=== PATIENT | male | born 1995 | race Caucasian/White ===

== ENCOUNTER 2022-04-21 11:12 | Inpatient (IN) ==
--- NOTE | 2022-03-27 15:00 | PAT Medication Instructions ---
Medication Instructions Date of Service March 27, 2022 Home Medications buspirone 10 mg tablet 10 mg PO QAM citalopram 10 mg tablet 10 mg PO QAM losartan 50 mg tablet 50 mg PO QAM metoprolol tartrate 25 mg tablet 25 mg PO QAM DO NOT take the morning of surgery losartan 50 mg tablet 50 mg PO QAM Take morning of surgery With a small sip of water, OTHERWISE NOTHING TO EAT OR DRINK AFTER MIDNIGHT: buspirone 10 mg tablet 10 mg PO QAM citalopram 10 mg tablet 10 mg PO QAM metoprolol tartrate 25 mg tablet 25 mg PO QAM Other Notes If you have any questions please call us at [phone] or [phone] or [phone] or [phone]
--- NOTE | 2022-04-07 11:17 | Anesthesiology Consultation ---
Date of Service April 07, 2022 Assessment & Plan (1) Encounter for pre-operative examination: - Cardiology office visit (01/28/21): "Family history of sudden cardiac at a young age [hypertrophic cardiomyopathy].. Antecedent vasovagal presyncope and palpitations currently resolved. Patient has minor premature atrial contractions and premature ventricular contractions and has a normal EKG.. Mitral valve prolapse syndrome. Echo with Doppler on January 21, 2021 reveals mild mitral valve prolapse with mild 1+ mitral valve regurgitation.. Preserved left ventricular ejection fraction 60% suggesting good prognosis.. Class II dyspnea that is insignificant with no heart failure.. Normal symptom limited stress test in the past.. Rare episodic nonexertional nonsustained palpitations." Diet recommendations provided. Echo January 2022 recommended." 01/23/2022 with Mild 1+ Myxomatous Degenerative Mitral Valve RegurgitationNo Significant Change Compared to 11/21/2020 per Report. 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 Pt reports no recent issues with palpitations more recently at PAT visit 04/07/22*) - COVID screening: Per assessment on 04/07: No known COVID-19 positive contacts or current COVID-19 related symptoms. Travel screen negative. Patient vaccinated. At surgeon discretion if preop Covid testing being done. Chart Review Chart Review: Acceptable Risk for Surgery (pending evaluation AM DOS) and Patient seen in Pre Admission Testing Teaching & Discussion Pre-Anesthesia Teaching/Discussion Notes: Instructed NPO after midnight before surgery,except medications with 15 cc of water. Medication instructions provided according to the PAT guidelines. History Surgery Operation Date: 04/21/22 07:45 Proposed Procedures p L5-S1 Decompression and Fusion Spinal Cord Monitoring - Leo Gillis, Height/Weight Height: 6 ft 1 in Weight: 93.4 kg Allergies Allergy/AdvReac Type Severity Reaction Status Date / Time shellfish derived Allergy Intermediate Hives Verified 03/22/22 15:27 Sulfa (Sulfonamide Allergy Unknown Unknown Verified 03/22/22 15:27 Antibiotics) fentanyl AdvReac Unknown N/V Verified 04/07/22 12:23 hydromorphone [From Dilaudid] AdvReac Unknown N/V Verified 04/07/22 12:23 Medications Home Medications Medication Instructions Recorded Confirmed Last Taken buspirone 10 mg tablet 10 mg PO QA 03/22/22 03/22/22 Unknown citalopram 10 mg tablet 10 mg PO QAM 03/22/22 03/22/22 Unknown losartan 50 mg tablet 50 mg PO QAM 03/22/22 03/22/22 Unknown metoprolol tartrate 25 mg tablet 25 mg PO QAM 03/22/22 03/22/22 Unknown Past Medical History Medical History Anxiety Depression Hypertension Mitral valve prolapse Mild 1+ myxomatous degenerative mitral regurgitation per 01/2022 echo Mitral valve regurgitation Palpitations Reason for metoprolol Follows with Dr. Najera ([facility]) Vasovagal near-syncope Hx per cardio records Exercise / Class Metabolic Activity II 4-5 Yardwork/Stairs/Walk up hill (one FS (no CP, no SOB)) Past Family History Family History Father Cardiomegaly Grandfather (Paternal) Diabetes Past Surgical History Surgical History History of cholecystectomy History of colonoscopy History of tonsillectomy [place] teeth extracted Past Anesthesia History No Hx of Anesthesia Complications and No Family Hx of Anesthesia Complications History of PONV No Hx of PONV and Hx of Motion Sickness Social History Smoking Status: Former smoker Do You Dip or Chew Tobacco: No Smoking End Date: Quit 8 years ago (hx light tobacco use) Hx Alcohol Use: Yes Alcohol type: beer, wine and hard liquor alcohol intake frequency: a few times a week Hx Substance Use: No substance use type: does not use Review of Systems Hx of palpitations, controlled on beta conner. Patient denies chest pain, shortness of breath, dyspnea on exertion, fever, chills, cough, wheezing. Physical Exam Vital Signs VITALS BP 114/74 P 73 TEMP 98.2 SP02 99%RA RESP 16 PHYSICAL Full cervical extension range of motion. Full TMJ range of motion. TMD 3 finger breaths Mallampati Score 1 Dentition: intact Lungs: clear throughout to auscultation Cardiac: regular rate and rhythm, no murmurs noted Spine: normal Extremities: no edema Lab Results Anesthesia Preop Results Results Anesthesia Widget: WBC 5.87 K/ul (4.8-10.8) 04/07/22 Hgb 15.3 g/dl (14.0-18.0) 04/07/22 Hct 42.8 % (40.1-51.0) 04/07/22 Plt 250 K/uL (130-400) 04/07/22 Na 140 mmol/L (136-145) 04/07/22 K 3.9 mmol/L (3.5-5.1) 04/07/22 Cl 104 mmol/L (98-107) 04/07/22 CO2 29 mmol/L (21-32) 04/07/22 BUN 12 mg/dl (6-23) 04/07/22 Creat 0.88 mg/dl (0.6-1.4) 04/07/22 Glucose Level 75 mg/dl (70-99(Fasting)) 04/07/22 PT 10.8 Seconds (9.0-12.0) 04/07/22 PTT 26.8 Seconds (21.0-31.0) 04/07/22 INR 1.0 (0.9-1.1) 04/07/22 Urine Color Yellow 04/07/22 Urine Appearance Clear (Clear) 04/07/22 Urine pH 7.5 (4.5-7.5) 04/07/22 Urine Specific [place] 1.004 (1.000-1.030) 04/07/22 Urine Protein Negative (Negative) 04/07/22 Urine Glucose (UA) Negative (Negative) 04/07/22 Urine Ketones Negative (Negative) 04/07/22 Urine Blood Negative (Negative) 04/07/22 Urine Nitrite Negative (Negative) 04/07/22 Urine Bilirubin Negative (Negative) 04/07/22 Urine Urobilinogen Negative (Negative) 04/07/22 Urine Leukocyte Esterase Negative (Negative) 04/07/22 Blood Type A Positive 04/07/22 Antibody Screen NEGATIVE 04/07/22 Testing Electrocardiogram Date: 04/07/22 Findings: + NSR @ (62) Chest X-Ray Date: 04/07/22 FINDINGS: PA and lateral chest radiographs are obtained. No prior studies are available for comparison at the time of dictation. The cardiomediastinal silhouette is unremarkable. The lungs and pleural spaces are clear. There is no pneumothorax. The bony thorax appears intact. Cholecystectomy clips are noted in the right upper quadrant. IMPRESSION: No active disease in the chest. Echocardiogram Date: 01/23/22 LVEF 59%. Mild 1+ myxomatous degenerative mitral valvular regurgitation. No mitral valve stenosis. Trace mild physiologic TR/MR. Aortic valve is competent. Well preserved biatrial systolic contractile function. No diagnostic evidence of significant chamber enlargement. No significant change compared to 11/21/2020 per report. Stress Test Date: 02/18/13 Type: exercise Maximal treadmill stress test electrocardiographically negative for ischemia. Rare PACs and PVCs that abated at peak exercise. Good exercise tolerance limited by fatigue and dyspnea." No contraindication for the patient to participate in sports and exercise." Other Testing 24 hour Holter monitor (01/06/22) Predominant rhythm is sinus with normal conduction intervals. Average heart rate 84 bpm. Occasional asymptomatic PACs. No significant pauses, bradycardia or sustained arrhythmia. No atrial fibrillation. Minimum heart rate 55 bpm. Maximum heart rate 156 bpm. COVID-19 Risk Screen Screening Information COVID-19 Screen Date: 04/07/22 Exposure 21 Days Family/Household +COVID Last 21 Days: No Exposure 10 Days Any COVID Exposure Last 10 Days: No Symptoms Last 10 Days Experienced COVID Sx Last 10 Days: No + COVID 0-90 Days COVID + in Last 0-90 Days: No
[~2022-04-21 11:12] MED LIST: ACETAMINOPHEN 500 MG TAB PO SCH; CeleBREX 200 MG CAP PO SCH; GABAPENTIN 900 MG DOSE PO SCH; LR 15ML/HR IV SCH; ceFAZolin 2000MG 2,000 MG/15 ML SYR IV SCH
[2022-04-21] MEDS ORDERED: PHENYLEPHRINE 100MCG/ML 5ML SYR IV PRN (11:32)
[2022-04-21] MEDS ORDERED: fentaNYL citrate 100 MCG/2 ML VIAL IV PRN (11:32)
[2022-04-21] MEDS ORDERED: LABETALOL HCL IV 5 MG/ML 20ML IV PRN (11:32)
[2022-04-21] MEDS ORDERED: ePHEDrine sulfate 50 MG/ML AMP IV PRN (11:32)
[2022-04-21] MEDS ORDERED: SCOPOLAMINE 1 MG TDSY TD ONE (11:32)
[2022-04-21] MEDS ORDERED: ATROPINE SULFATE 0.1 MG/ML 10ML SYR IV PRN (11:32)
[2022-04-21] MEDS ORDERED: ONDANSETRON INJ 2 MG/ML 2 ML VIAL IV PRN ×2 (11:32→17:11)
--- NOTE | 2022-04-21 13:29 | History & Physical Bridge Note ---
Date of Service April 21, 2022 History & Physical Bridge Note I have examined the patient, reviewed the History & Physical and in the interval since the performance of the History & Physical I have noted the following changes of clinical significance: no changes noted
--- NOTE | 2022-04-21 13:30 | History & Physical Report ---
Date of Service April 21, 2022 Assessment & Plan (1) Neurogenic claudication due to lumbar spinal stenosis: Plan: L5-S1 decompression and fusion History of Present Illness Chief Complaint: Back and leg pain Primary Care Provider: Aleksandr Soto MD This is a 18-year-old male who presents with chronic persistent back and leg pain after failing course of nonoperative care is here for surgical invention. Allergies Allergy/AdvReac Type Severity Reaction Status Date / Time shellfish derived Allergy Intermediate Hives Verified 04/21/22 11:45 Sulfa (Sulfonamide Allergy Unknown Unknown Verified 04/21/22 11:45 Antibiotics) fentanyl AdvReac Unknown N/V Verified 04/21/22 11:45 hydromorphone [From Dilaudid] AdvReac Unknown N/V Verified 04/21/22 11:45 Home Medications Medication Instructions Recorded Confirmed Type buspirone 10 mg tablet 10 mg PO QAM 03/22/22 04/21/22 History citalopram 10 mg tablet 10 mg PO QAM 03/22/22 04/21/22 History losartan 50 mg tablet 50 mg PO QAM 03/22/22 04/21/22 History metoprolol tartrate 25 mg tablet 25 mg PO QAM 03/22/22 04/21/22 History Past Med/Surg History Medical History Anxiety Depression Hypertension Mitral valve prolapse Mild 1+ myxomatous degenerative mitral regurgitation per 01/2022 echo Mitral valve regurgitation Palpitations Reason for metoprolol Follows with Dr. Najera ([facility]) Vasovagal near-syncope Hx per cardio records Surgical History History of cholecystectomy History of colonoscopy History of tonsillectomy [place] teeth extracted Family History Father Cardiomegaly Grandfather (Paternal) Diabetes Social History Smoking Status: Former smoker Smoking End Date: Quit 8 years ago (hx light tobacco use); Second Hand Exposure: No; Do You Dip or Chew Tobacco: No; Tobacco Cessation Education Requested by Patient: No Hx Alcohol Use: Yes Alcohol type: beer, wine and hard liquor Hx Substance Use: No Preferred Language: Gabonese Communication Ability: Effective Software 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
[2022-04-21] MEDS ORDERED: BUPIVACAINE/EPINEPHRINE 0.25% 1:200,000 30 ML VIAL ONE (13:45)
[2022-04-21] MEDS ORDERED: ceFAZolin 330 MG/ML 1 GM VIAL ONE (13:45)
[2022-04-21] MEDS ORDERED: ONDANSETRON INJ 2 MG/ML 2 ML VIAL ONE (13:46)
[2022-04-21] MEDS ORDERED: MIDAZOLAM HCL 1 MG/ML 2ML VIAL ONE (13:46)
[2022-04-21] MEDS ORDERED: GLYCOPYRROLATE 0.2 MG/ML VIAL ONE (13:46)
[2022-04-21] MEDS ORDERED: LIDOCAINE 2% MPF LOCAL 5 ML VIAL INFIL ONE (13:46)
[2022-04-21] MEDS ORDERED: fentaNYL citrate 100 MCG/2 ML VIAL ONE ×2 (13:46→14:22)
[2022-04-21] MEDS ORDERED: NEOSTIGMINE METHYLSULFATE 1 MG/ML 10ML VIAL ONE (13:46)
[2022-04-21] MEDS ORDERED: ROCURONIUM BROMIDE 10 MG/ML 5 ML VIAL IV ONE (13:46)
[2022-04-21] MEDS ORDERED: PROPOFOL IV EMULSION 10 MG/ML 20 ML VIAL IV ONE (13:46)
[2022-04-21] MEDS ORDERED: diphenhydrAMINE 50 MG/ML VIAL ONE (14:22)
[2022-04-21] MEDS ORDERED: FLOSEAL HEMOSTATIC MATRIX 10ML TOP ONE (14:47)
[2022-04-21] MEDS ORDERED: SUGAMMADEX SODIUM 200 MG/2 ML VIAL IV ONE (14:53)
[2022-04-21] MEDS ORDERED: PHENYLEPHRINE 100MCG/ML 5ML SYR ONE (15:16)
--- NOTE | 2022-04-21 15:46 | Operative Report ---
Post Operative Report Pre & Post Diagnosis Operation Date: 04/21/22 12:45 Pre-Op Diagnosis: Neurogenic Claudication due to Lumbar Spinal Stenosis Post-Op Diagnosis: Neurogenic Claudication due to Lumbar Spinal Stenosis I identified the patient and participated in the time-out.: Yes Procedure Operation Date: 04/21/22 12:45 Actual Procedures #1 lumbar decompression bilateral medial facetectomies and foraminotomies L4-L5 L5-S1. #2 posterior spinal fusion L5-S1. #3 placement of posterior instrumentation L5-S1. #4 interbody fusion L5-S1. #5 placement of Spira 14 x 26 mm cage L5-S1. #6 placement locally harvested morselized autograft in the posterior gutters. #7 placement of I factor combined with V toss interbody space and posterior gutters. Surgeon Leo Gillis, Fishing Tool Supervisor Garrison Khan Estimated Blood Loss 100 Findings Consistent with Post-Op Diagnosis Specimens None Indications This is a 18-year-old male who presents above-mentioned diagnosis after failed course of nonoperative care is here for surgical invention. Description of Procedure Patient was met with identified informed consent obtained. Patient was then taken to the operative suite underwent ablation placed in a prone position the [place] table top Mark frame. All bony prominences well-padded eyes inspected to ensure no external pressure placed upon the. This point lumbar spine was prepped and draped in a sterile fashion. Sharp dissection with the assistance of Bovie cardiac form down to and exposing the lamina and transverse processes of L5 and sacral ala bilaterally. From caudal cephalad fashion complete laminectomy L5 partial laminectomy of L4 was performed including bilateral facetectomies and foraminotomies addressing severe spinal stenosis. Pedicle screws were then placed in L5 and S1 levels bilaterally with assistance of fluoroscopy and the properly sized amado placed. By way of entrance foraminal approach on the right complete discectomy of L5-S1 was performed endplates curetted to subcortical bleeding bone and a 14 x 26 mm spiral cage with I factor tapped in position. The rods then locked in final position bilaterally. The transverse processes of L5 and the sacral ala burred to subcortical bleeding bone. I factor model V toss and locally harvested morselized autograft placed in the posterior gutters. 15 round SEBASTIÁN drain inserted. Incision was then closed with subcutaneous Vicryl and 4 Monocryl for final skin closure. Steri-Strip sterile dressings placed. Patient waken taken to PACU in stable condition. Please note spinal cord monitoring was utilized at the procedure no changes noted. Lastly Garrison Khan was present at the entire surgery and while the patient positioning complex portion of the surgery and final skin closure. I attest to the content of the Intraoperative Record and any orders documented therein. Any exceptions are noted below.
--- NOTE | 2022-04-21 15:49 | Fluoroscopy Report ---
FL lumbar spine 2-3V CLINICAL HISTORY: L5-S1 DFI COMPARISON STUDY: None. FLUOROSCOPY TIME: 22 seconds. FLUOROSCOPIC IMAGES: 2 FINDINGS: Fluoroscopy was provided during the L5-S1 discectomy, posterior decompression and bilateral pedicle screw fusion. A curvilinear density within the operative bed on AP projection is likely post surgical. Hardware is intact. IMPRESSION: Fluoroscopy provided during L5-S1 discectomy, posterior decompression and pedicle screw fusion. ACT 112: Negative or not required by law. Electronically signed by: Daniel Andre M.D. 04/21/2022 3:47 PM
--- NOTE | 2022-04-21 16:49 | Anesthesiology Progress Note ---
Date of Service April 21, 2022 Anesthesia Post Procedure Vital Signs Vital Signs: Temp Pulse Pulse Resp BP Pulse Ox O2 Del Method 04/21/22 16:45 36.4 C L 86 17 142/55 H 97 Room Air 04/21/22 16:35 75 12 129/64 100 Oxymask 04/21/22 16:25 73 12 119/59 L 99 Oxymask 04/21/22 16:15 71 18 121/53 L 99 Oxymask 04/21/22 16:06 36.5 C 66 10 L 111/56 L 96 Oxymask 04/21/22 11:35 36.8 C 86 20 140/89 98 Room Air O2 Flow Rate 04/21/22 16:45 04/21/22 16:35 9 04/21/22 16:25 9 04/21/22 16:15 9 04/21/22 16:06 9 04/21/22 11:35 Pain Intensity Back: Pain Intensity: 3 Transfer of Care Handoff Completed per policy Notes Mental Status: alert / awake / arousable and participated in evaluation Patient Amnestic to Procedure: Yes Nausea / Vomiting: adequately controlled Pain: adequately controlled Airway Patency, RR, SpO2: stable & adequate BP & HR: stable & adequate Hydration State: stable & adequate Anesthetic Complications: no major complications apparent and Pt Satisfied with anesthetic care
[2022-04-21] MEDS ORDERED: PROMETHAZINE HCL 12.5 MG in SODIUM CHLORIDE 0.9% 50 ML IV PRN (17:11)
[2022-04-21] MEDS ORDERED: MoRPHine SULFATE 4 MG/ML 1 ML CARP\\VIAL IV PRN (17:11)
[2022-04-21] MEDS ORDERED: ALUMINUM/MAGNESIUM SUSP 30 ML UDC PO PRN (17:11)
[2022-04-21] MEDS ORDERED: ACETAMINOPHEN 500 MG TAB PO PRN (17:11)
[2022-04-21] MEDS ORDERED: SOD PHOSPHATE/SOD BIPHOSPHATE ENEMA 132 ML BTL PR PRN (17:11)
[2022-04-21] MEDS ORDERED: LORazepam 0.5 MG TAB PO PRN (17:11)
[2022-04-21] MEDS ORDERED: bisacodyL 10 MG SUPP PR PRN (17:11)
[2022-04-21] MEDS ORDERED: ONDANSETRON 4 MG OD TAB PO PRN (17:11)
[2022-04-21] MEDS ORDERED: hydrOXYzine HCl 25 MG TAB PO PRN (17:11)
[2022-04-21] MEDS ORDERED: FAMOTIDINE 20 MG TAB PO PRN (17:11)
[2022-04-21] MEDS ORDERED: METOCLOPRAMIDE HCL INJ 5 MG/ML 2 ML VIAL IV PRN (17:11)
[2022-04-21] MEDS ORDERED: ACETAMINOPHEN 1,000 MG/100 ML VIAL IV PRN (17:11)
[2022-04-21] MEDS ORDERED: MoRPHine SULFATE 2 MG/ML CARP IV PRN (17:11)
[2022-04-21] MEDS ORDERED: LORazepam 0.5 MG in SYRINGE 0 ML IV PRN (17:11)
[2022-04-21] MEDS ORDERED: NALOXONE HCL 0.4 MG/1 ML VIAL/CARP IV PRN (17:11)
[2022-04-21] MEDS ORDERED: MAGNESIUM HYDROXIDE SUSP 30 ML UDC PO PRN (17:11)
[2022-04-21] MEDS ORDERED: diphenhydrAMINE Capsule 25 MG CAP PO PRN (17:11)
[2022-04-21] MEDS: KETOROLAC 30 MG/ML VIAL IV SCH (17:45)
[2022-04-21] MEDS: CHECK SCOPOLAMINE PATCH PLACEMENT SCH (17:48)
[2022-04-21] MEDS: oxyCODONE HCL IR 5 MG TAB (IMMEDIATE RELEASE) PO PRN (19:57)
[2022-04-21] MEDS ORDERED: PNEUMOCOCCAL Polysaccharide Vaccine 25mcg/0.5mL vial/Syr IM ONE (21:00)
[2022-04-21] MEDS: LACTATED RINGER'S 1,000 ML IV SCH (21:30)
[2022-04-21] MEDS: traMADol HCL 50 MG TABLET PO PRN (21:56)
[2022-04-21] MEDS: ceFAZolin 2000MG 2,000 MG/15 ML SYR IV SCH (21:57)
[2022-04-21] MEDS: DOCUSATE SODIUM/SENNA 50/8.6MG TAB PO SCH (21:57)
[2022-04-22] MEDS: KETOROLAC 30 MG/ML VIAL IV SCH ×3 (00:38→13:14)
[2022-04-22] MEDS: CHECK SCOPOLAMINE PATCH PLACEMENT SCH ×4 (00:39→23:11)
[2022-04-22] MEDS: LACTATED RINGER'S 1,000 ML IV SCH (04:23)
[2022-04-22] MEDS: POLYETHYLENE (MIRALAX) 17 GM PACK PO SCH ×4 (06:01→23:11)
[2022-04-22] MEDS: ceFAZolin 2000MG 2,000 MG/15 ML SYR IV SCH (06:05)
[2022-04-22 06:46] LABS: Basophils # (auto) 0.01 K/uL (0-0.2); Basophils % (auto) 0.1 %; Eosinophils # (auto) 0.01 K/uL (0-0.50); Eosinophils % (auto) 0.1 %; Hematocrit (blood only) 37.4 % (40.1-51.0); Hemoglobin 13.4 g/dl (14.0-18.0); Immature Granulocytes # (auto) 0.05 K/uL (0.00-0.02); Immature Granulocytes % (auto) 0.4 %; Lymphocytes % (auto) 13.2 %; Mean Corpuscular Hemoglobin 30.3 pg (25.0-34.0); Mean Corpuscular Hgb Conc 35.8 g/dL (32.0-36.0); Mean Corpuscular Volume 84.6 fL (80.0-100.0); Mean Platelet Volume 9.2 fL (9.4-12.4); Monocytes # (auto) 0.92 K/uL (0.24-0.82); Monocytes % (auto) 7.6 %; Neutrophils # (auto) 9.52 K/uL (1.4-6.5); Neutrophils % (auto) 78.6 %; Platelet Count 213 K/uL (130-400); RDW Coefficient of Variation 10.9 % (11.5-14.5); Red Blood Count 4.42 M/uL (4.63-6.08); White Blood Count 12.11 K/ul (4.8-10.8)
[2022-04-22 07:43] LABS: BUN Creatinine Ratio 13.3 (10-20); Calcium 9.2 mg/dl (8.5-10.1); Creatinine Clr Calc Pharmacy 126.8 ml/min; Est GFR (African American) 121.1 ml/min; Est GFR (Non-African American) 104.5 ml/min; Potassium 3.9 mmol/L (3.5-5.1)
--- NOTE | 2022-04-22 08:12 | Orthopedic Progress Note ---
Date of Service April 22, 2022 Assessment & Plan (1) Neurogenic claudication due to lumbar spinal stenosis: Plan: This time initiate physical therapy monitor his SEBASTIÁN operatively discharge home next day or so. Admission and Anticipated Discharge Date Admission Date: April 21, 2022 Subjective Back pain controlled leg symptoms improved Physical Exam Physical Exam: Patient is comfortable. Is good strength testing. Results & Data ([facility]) Vital Signs (Past 12 Hours) Vital Signs Temp Pulse Resp BP Pulse Ox O2 Del Method 04/22/22 07:41 36.4 C L 75 16 126/68 98 Room Air 04/22/22 04:01 36.6 C 65 18 123/70 98 Room Air 04/21/22 23:26 36.7 C 84 16 135/70 96 Room Air
[2022-04-22] MEDS: busPIRone 5 MG TAB PO SCH (10:00)
[2022-04-22] MEDS: CITALOPRAM 20 MG TAB PO SCH (10:00)
[2022-04-22] MEDS: LOSARTAN POTASSIUM 50 MG TAB PO SCH (10:01)
[2022-04-22] MEDS: METOPROLOL TARTRATE 25 MG TAB PO SCH (10:01)
[2022-04-22] MEDS: dexAMETHasone 6 MG in SYRINGE 0 ML IV SCH (10:02)
[2022-04-22] MEDS: oxyCODONE HCL IR 5 MG TAB (IMMEDIATE RELEASE) PO PRN ×2 (18:07→23:11)
[2022-04-22] MEDS: DOCUSATE SODIUM/SENNA 50/8.6MG TAB PO SCH (21:25)
[2022-04-23] MEDS: POLYETHYLENE (MIRALAX) 17 GM PACK PO SCH ×3 (05:07→17:24)
[2022-04-23] MEDS: traMADol HCL 50 MG TABLET PO PRN ×3 (05:11→19:56)
--- NOTE | 2022-04-23 08:11 | Orthopedic Progress Note ---
Date of Service April 23, 2022 Assessment & Plan (1) Neurogenic claudication due to lumbar spinal stenosis: Plan: Jesus is postop day 2 status post TLIF L5-S1. We will work on advancing his ambulation/physical therapy today. Continue with aggressive bowel regimen. DVT prophylaxis is in the form teds and SCDs. Maintain SEBASTIÁN drain. Anticipate discharge home tomorrow. Admission and Anticipated Discharge Date Admission Date: April 21, 2022 Subjective Jesus is postoperative day 2 status post TLIF L5-S1. Has some numbness in his right foot but the pain has resolved involving his right lower extremity. Back pain is controlled. He is passing flatus but no bowel movement. SEBASTIÁN drain output last shift was 15 cc. History of physical therapy ambulating roughly 40 feet. Review of Systems Review of Systems: All systems reviewed & are unremarkable except as noted in HPI & below Physical Exam Physical Exam: Lying in bed in no acute distress Alert and oriented x3 Lumbar dressing is clean dry and intact functioning SEBASTIÁN drain Calf soft nontender Strength is intact bilateral lower extremity Results & Data ([facility]) Vital Signs (Past 12 Hours) Vital Signs Temp Pulse Resp BP Pulse Ox O2 Del Method 04/22/22 23:13 36.6 C 64 16 146/75 H 97 Room Air
[2022-04-23] MEDS: CITALOPRAM 20 MG TAB PO SCH (09:32)
[2022-04-23] MEDS: dexAMETHasone 6 MG in SYRINGE 0 ML IV SCH (09:32)
[2022-04-23] MEDS: busPIRone 5 MG TAB PO SCH (09:32)
[2022-04-23] MEDS: LOSARTAN POTASSIUM 50 MG TAB PO SCH (09:33)
[2022-04-23] MEDS: METOPROLOL TARTRATE 25 MG TAB PO SCH (09:33)
[2022-04-23] MEDS: CHECK SCOPOLAMINE PATCH PLACEMENT SCH ×2 (09:33→15:08)
[2022-04-23] MEDS: DOCUSATE SODIUM/SENNA 50/8.6MG TAB PO SCH (19:57)
[2022-04-24] MEDS: CHECK SCOPOLAMINE PATCH PLACEMENT SCH (00:16)
[2022-04-24] MEDS: POLYETHYLENE (MIRALAX) 17 GM PACK PO SCH ×2 (00:16→06:17)
[2022-04-24] MEDS: CITALOPRAM 20 MG TAB PO SCH (09:49)
[2022-04-24] MEDS: busPIRone 5 MG TAB PO SCH (09:49)
[2022-04-24] MEDS: LOSARTAN POTASSIUM 50 MG TAB PO SCH (09:50)
[2022-04-24] MEDS: METOPROLOL TARTRATE 25 MG TAB PO SCH (09:50)
[2022-04-24] MEDS: traMADol HCL 50 MG TABLET PO PRN (09:54)
[2022-04-24] MEDS: dexAMETHasone 6 MG in SYRINGE 0 ML IV SCH (09:55)
--- NOTE | 2022-04-24 11:00 | Discharge Summary ---
Date of Service April 24, 2022 Admission HPI Per Admitting Provider This is a 18-year-old male who presents with chronic persistent back and leg pain after failing course of nonoperative care is here for surgical invention. Principal Diagnosis Lumbar spinal stenosis with neurogenic claudication Discharge Data Allergies Allergy/AdvReac Type Severity Reaction Status Date / Time shellfish derived Allergy Intermediate Hives Verified 04/21/22 11:45 Sulfa (Sulfonamide Allergy Unknown Unknown Verified 04/21/22 11:45 Antibiotics) fentanyl AdvReac Unknown N/V Verified 04/21/22 11:45 hydromorphone [From Dilaudid] AdvReac Unknown N/V Verified 04/21/22 11:45 Procedures Performed Operation Date: 04/21/22 12:45 Actual Procedures p L5-S1 Decompression and Fusion, Spinal Cord Monitoring(Not Applicable) - Leo Gillis DO Ordered Studies 04/21/22 12:45 [place] lumbar spine 2-3V Routine Hospital Course (1) Neurogenic claudication due to lumbar spinal stenosis: Patient with lumbar decompression fusion tolerated this well second orthopedic for postoperative. Postop day 1 he was up and ambulating progressed to postop day #2 on postop day 3 [place] drain decreased probably. Pain well controlled. Excellent strength testing. Separately discharged home. Discharge orders instructions found in chart for further review. Total Time Total Time Spent Total Time Spent (In Minutes): 20 minutes Discharge Plan Discharge Items Patient Disposition: Home - Self-Care Reason For Visit: Spinal stenosis, lumbar region without neurogenic Discharge Diagnosis: Lumbar spinal stenosis with neurogenic claudication Activity: As commented below Non-emergency contact: Primary Care Provider Call non-emergency contact if: you have any medication questions Follow-up/Referrals: Aleksandr Soto MD [Primary Care Provider] - Diet: Regular Addtl Attending Provider Instructions: ACTIVITY RECOMMENDATIONS: SELF CARE INSTRUCTIONS AFTER THORACIC/LUMBAR FUSIONS 1. You may walk to your tolerance. It is good exercise for your legs and back. Expect some back and intermittent leg aches and pains. 2. You may perform "counter-top" level activities (make a sandwich, jace with a project, etc.). 3. No bending or lifting of more than 10 pounds or back twisting of any nature (roll like a log when turning in bed). 4. You may ride in a car for 20-30 minutes at a time. No driving until after your first visit with your doctor. 5. Frequent changes of position and restricting sitting to 30 minutes at a time will help limit the amount of back spasms and stiffness you may experience. 6. You may discontinue the use of ambulatory aids (cane, crutches, etc.) once your strength and confidence allow. 7. You may industrial relations commissioner the shower and let water strike your incision when you arrive home at least once daily. Do not take a tub bath, sit in a hot tub or go into a swimming pool until after your first recheck in the office. SPECIAL CARE INSTRUCTIONS: VERY IMPORTANT TO READ AND REVIEW A. Your surgical incision has been closed with a cosmetic suture under the skin that will dissolve in about 6 weeks. In 14 days, you can use a pair of clean scissors and cut the suture that is left outside of the skin at the ends of your incision. 1. The small skin tapes can be removed 7 days after surgery if they have not fallen off by that point. 2. You may keep the wound open to air as much as possible to promote healing after post-op day number 5 unless told otherwise by your doctor. 3. If you think the wound looks like it is becoming infected (redness or worsening drainage) and/or you are experiencing fever, chill or worsening back pain and muscle spasms, contact the office so that we may evaluate you as soon as possible. B. Complications are uncommon, but please contact us if you have any signs or symptoms of: 1. wound infection (fever higher than 102.5 degrees F, redness, separation of wound, drainage, or increasing pain from the incision) 2. blood clots in legs (pain, swelling, redness and warmth in legs) 3. urinary tract infection (fever higher than 102.5 degrees F, burning upon urination or increased frequency of urination) 4. nerve problems (inability to walk on your toes or heels, numbness, loss of bowel or bladder control) 5. any other symptoms that concern you C. Please call the office at if you have any concerns or questions about your operation or recovery. D. No smoking! Smoking drastically decreases the chance of a solid fusion. E. Do not take any anti-inflammatory medications (Indocin, Advil, Motrin, Aspirin, Naprosyn, etc.) as these may inhibit the chance of a solid fusion. Tylenol is okay to take for pain. MANAGING PAIN AFTER SPINAL SURGERY 1. Narcotic medication is intended for short-term use and will be provided for surgical pain. Surgical pain usually lasts for a period of 4-6 weeks. Narcotic medication includes Percocet, Vicodin, Darvocet, Tylenol #3 or Lortab. 2. Longer-term pain is more appropriately treated with non-narcotic medication such as Tylenol ES. 3. Muscle spasm is not appropriately treated with narcotics. Muscle relaxers such as Soma, Flexeril or Skelaxin can be used along with Tylenol ES. 4. Remember that we all live with some "aches and pains". This is not unusual or uncommon after an injury or as we get older. a. Back pain is expected and may include muscle spasms for 4 to 6 weeks after surgery. The pain should gradually improve. If the pain worsens for no apparent reason, please contact the office. b. Intermittent leg pain may also be experienced and should not be concerned about unless it worsens for no apparent reason. If so, please contact the office. 5. We will provide appropriate medication within the normal guidelines of their prescribed use. We will also be very cautious and aware of potential abuse and extended duration of patients' medication needs. a. Pain medications are for your comfort and to assist with sleep and rest so that the tissue can heal. They are not provided in order to return to normal activity and should not be used through the day. To do so or worsening pain at night can result from ongoing tissue damage and development of tolerance to the prescribed medicine. 6. Please allow 2-3 days to process refills. Prescriptions will not be mailed but must be picked up at the office. FOLLOW UP VISIT: Keep your scheduled follow-up appointment. Any questions, please call the office at . Pending Studies at Discharge: No Stand-Alone Forms: [employer], Smoking Cessation Medications and DC Order Prescriptions: New tramadol 50 mg tablet 50 mg PO Q6H PRN (Reason: pain, moderate) Qty: 30 0RF oxycodone 5 mg tablet 5 mg PO Q6H PRN (Reason: pain, severe) Qty: 30 0RF Continued losartan 50 mg Tablet 50 mg PO QAM citalopram 10 mg Tablet 10 mg PO QAM buspirone 10 mg Tablet 10 mg PO QAM metoprolol tartrate 25 mg Tablet 25 mg PO QAM Discharge Orders: Discharge Order (Routine); Ordered 04/24/22 Ordered By: Leo Gillis Admission Data Admit Date/Time: 04/21/22 15:50 Attending Provider: Leo Gillis Admit Provider: Leo Gillis Primary Care Provider: Aleksandr Soto
== END 2022-04-24 12:50 | disposition home or self-care (01) | DRG 455 ==
LOC: ASU 11:12 → 3E 15:50